=== PATIENT | female | born 1985 | race Caucasian/White ===

== ENCOUNTER 2018-03-27 15:17 | Emergency (ER) | payer SELFPAY ==
[~2018-03-27] VITALS: Ht 154.9 cm; Wt 62.7 kg
[2018-03-27 15:27] VITALS: Ht 154.9 cm; Wt 62.7 kg
[2018-03-27 16:07] LABS: APPEARANCE CLEAR (CLEAR); COLOR YELLOW (YELLOW); SPECIFIC GRAVITY 1.015 (1.005-1.020)
[2018-03-27 16:08] LABS: BILIRUBIN NEGATIVE (NEGATIVE); GLUCOSE NEGATIVE (NEGATIVE); KETONE NEGATIVE (NEGATIVE); NITRITE NEGATIVE (NEGATIVE); PROTEIN TRACE mg/dL (NEGATIVE); UROBILINOGEN NORMAL (NORMAL)
[2018-03-27 16:09] LABS: RED CELLS - URINE 0-5 /hpf (0-5); WHITE CELLS - URINE 25-50 /hpf (0-5)
[2018-03-27 16:11] LABS: BACTERIA MANY /hpf (NONE SEEN); EPITHELIAL CELLS 0-5 /hpf (0-5); MUCUS <1+ /lpf (NONE SEEN)
[2018-03-27] MEDS ORDERED: MACROBID100 MG PO (16:20)
[2018-03-27 17:10] VITALS: BP 103/65
== END 2018-03-27 16:53 | disposition home or self-care (01) ==
LOC: D.ER 15:17
PROVIDERS: Family Medicine
DX: N39.0 Urinary tract infection, site not specified (principal); F17.200 Nicotine dependence, unspecified, uncomplicated